=== PATIENT | male | born 1955 | race Caucasian/White ===

== ENCOUNTER 2019-09-16 17:25 | Observation (INO) ==
[2019-09-16] MEDS ORDERED: SODIUM CHLORIDE 0.9% 1000ML 500 ML IV ONE (19:04)
[2019-09-16 19:30] LABS: Basophils # (auto) 0.02 K/uL (0-0.2); Basophils % (auto) 0.3 %; Eosinophils % (auto) 3.2 %; Hematocrit (blood only) 46.9 % (42-52); Immature Granulocytes # (auto) 0.02 K/uL (0.00-0.02); Immature Granulocytes % (auto) 0.3 %; Lymphocytes # (auto) 1.48 K/uL (1.2-3.4); Lymphocytes % (auto) 23.5 %; Mean Corpuscular Hemoglobin 31.1 pg (25-34); Mean Corpuscular Hgb Conc 34.1 g/dL (32-36); Mean Corpuscular Volume 91.2 fL (80-100); Mean Platelet Volume 10.5 fL (7.4-10.4); Monocytes # (auto) 0.62 K/uL (0.11-0.59); Monocytes % (auto) 9.8 %; Neutrophils # (auto) 3.97 K/uL (1.4-6.5); Neutrophils % (auto) 62.9 %; Platelet Count 198 K/uL (130-400); RDW Coefficient of Variation 12.8 % (11.5-14.5); RDW Standard Deviation 42.7 fL (36.4-46.3); Red Blood Count 5.14 M/uL (4.7-6.1); White Blood Count 6.31 K/uL (4.8-10.8)
[2019-09-16 19:41] LABS: Partial Thromboplastin Time 25.8 Seconds (21.0-31.0); Prothrombin Time 10.3 Seconds (9.0-12.0)
[2019-09-16 19:45] LABS: Albumin Level 4.2 gm/dl (3.4-5.0); BUN Creatinine Ratio 20.2 (10-20); Calcium 9.2 mg/dl (8.5-10.1); Creatinine Clr Calc Pharmacy 78.8 ml/min; Est GFR (African American) 71.5; Est GFR (Non-African American) 61.7; Magnesium 2.3 mg/dl (1.8-2.4)
[2019-09-16 19:59] LABS: Albumin Globulin Ratio 1.3 (0.9-2); Bilirubin,Total 0.4 mg/dl (0.2-1); Globulin 3.2 gm/dl (2.5-4.0); Thyroid Stimulating Hormone 1.34 uIu/ml (0.300-4.500); Total Protein 7.4 gm/dl (6.4-8.2); Troponin I 0.288 ng/ml (0-0.045)
--- NOTE | 2019-09-16 20:04 | XRay Report ---
SINGLE VIEW CHEST CLINICAL HISTORY: Atypical chest pain. FINDINGS: 2 AP, portable, upright chest radiographs are compared to study dated 02/08/2009. The examin ation is degraded by portable technique and patient rotation. The heart is top normal for projection. The mediastinal contour is within normal limits. The lungs and pleural spaces are clear. No pneumoth orax is seen. The bony thorax is grossly intact. IMPRESSION: No active disease in the chest. Electronically signed by: Ricardo Stacy M.D. 09/16/2019 8:03 PM
[2019-09-16] MEDS ORDERED: METOPROLOL TARTRATE 25 MG TAB PO SCH (20:20)
[2019-09-16] MEDS ORDERED: METOPROLOL TARTRATE 25 MG TAB PO STA (20:21)
--- NOTE | 2019-09-16 21:40 | History & Physical Report ---
Date of Service September 16, 2019 Assessment & Plan (1) Palpitations: With troponin elevation Possibly from uncontrolled blood pressure Missed beta-benja dose Unknown BP control at home Anxiety contributory rule out RUBÉN CAD status post stent history of DVT sp Coumadin, history factor V Leiden mutation as per records hyperlipidemia, statin intolerance OBS PCU Facilitate home beta-benja, may need dose titration Anxiolytic as needed Follow troponin Cardiology consult in a.m. RE palpitations, troponin elevation (Patient known to Dr. Cowart.) N.p.o. after midnight in anticipation of any cardiac procedure. Outpatient sleep study DVT prophylaxis. Lovenox subcu Full code History of Present Illness Chief Complaint: Palpitations Primary Care Provider: Rene Bautista MD History obtained from patient, family, and records. Medical history significant for CAD status post stent, history DVT status post Coumadin, factor V Leiden mutation as per records, hypertension, hyperlipidemia, statin intolerance. 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 Atenolol replaced by Lopressor after recent confinement February [address] elevation ND status post stent placement. The last 3 weeks patient felt heart skipping a beat sensation a little different from usual heartbeat as per patient. Patient did not take morning Lopressor today thinking medication might be causing abnormality. No chest pain, no S OB. Usual stress at home. Patient does not check his blood pressure at home. Patient does not feel rested in the morning. Remembers an episode where he woke up gasping for air. Denies dietary indiscretion. Patient brought to the ER by family due to heartbeat concerns. 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 Allergies Allergy/AdvReac Type Severity Reaction Status Date / Time naproxen [From Naprosyn] Allergy Intermediate Shortness Unverified 09/16/19 20: 07 of Breath Home Medications Home Medications Medication Instructions Recorded Confirmed Type aspirin 81 mg PO HS 09/16/19 09/16/19 History hydrochlorothiazide 12.5 mg PO QAM 09/16/19 09/16/19 History metoprolol succinate 25 mg PO BID #60 tab 09/17/19 Rx Past Med/Surg History Social History Preferred Language: Occitan Communication Ability: Effective Beliefs That Will Affect Care: None Current Living Situation: Spouse Feels Safe at Home: Yes Smoking Status: Never smoker Hx Alcohol Use: No Hx Substance Use: No Review of Systems Review of Systems: As per HPI, all 10 systems reviewed, all other ROS negative Physical Exam Physical Exam: GENERAL: Comfortable, slightly anxious, no respiratory distress SKIN: Normal color, warm HEENT: [place] palpebral conjunctivae, no ptosis, moist buccal mucosa NECK : Supple, no tenderness CHEST : CTA, no tenderness HEART : Ectopic beats, no obvious murmurs ABDOMEN: Some distention, nontender EXTREMITIES : No LE swelling/tenderness, no other conspicuous deformities noted NEUROLOGIC : Coherent, no facial asymmetry, no other gross focality Results & Data Vital Signs (Past 12 Hours) Vital Signs Temp Pulse Resp BP Pulse Ox 09/16/19 21:00 84 18 159/99 H 99 09/16/19 20:30 91 H 17 153/91 H 99 09/16/19 20:15 82 15 153/100 H 98 09/16/19 20:00 91 H 15 160/93 H 99 09/16/19 19:30 80 12 139/86 99 09/16/19 19:01 76 19 162/95 H 99 09/16/19 17:32 36.7 C 57 L 18 164/96 H 98 Laboratory Results Laboratory Results WBC 6.31 K/uL (4.8-10.8) 09/16/19 19:15 RBC 5.14 M/uL (4.7-6.1) 09/16/19 19:15 Hgb 16.0 g/dL (14.0-18.0) 09/16/19 19:15 Hct 46.9 % (42-52) 09/16/19 19:15 MCV 91.2 fL (80-100) 09/16/19 19:15 MCH 31.1 pg (25-34) 09/16/19 19:15 MCHC 34.1 g/dL (32-36) 09/16/19 19:15 RDW Std Deviation 42.7 fL (36.4-46.3) 09/16/19 19:15 RDW Coeff of Caro 12.8 % (11.5-14.5) 09/16/19 19:15 Plt Count 198 K/uL (130-400) 09/16/19 19:15 MPV 10.5 fL (7.4-10.4) H 09/16/19 19:15 Immature Gran % (Auto) 0.3 % 09/16/19 19:15 Neut % (Auto) 62.9 % 09/16/19 19:15 Lymph % (Auto) 23.5 % 09/16/19 19:15 [place] % (Auto) 9.8 % 09/16/19 19:15 Eos % (Auto) 3.2 % 09/16/19 19:15 Baso % (Auto) 0.3 % 09/16/19 19:15 Immature Gran # (Auto) 0.02 K/uL (0.00-0.02) 09/16/19 19:15 Neut # (Auto) 3.97 K/uL (1.4-6.5) 09/16/19 19:15 Lymph # (Auto) 1.48 K/uL (1.2-3.4) 09/16/19 19:15 [place] # (Auto) 0.62 K/uL (0.11-0.59) H 09/16/19 19:15 Eos # (Auto) 0.20 K/uL (0-0.5) 09/16/19 19:15 Baso # (Auto) 0.02 K/uL (0-0.2) 09/16/19 19:15 PT 10.3 Seconds (9.0-12.0) 09/16/19 19:15 INR 1.0 (0.9-1.1) 09/16/19 19:15 APTT 25.8 Seconds (21.0-31.0) 09/16/19 19:15 PTT Ratio 1.0 09/16/19 19:15 Sodium 138 mmol/L (136-145) 09/16/19 19:15 Potassium 4.0 mmol/L (3.5-5.1) 09/16/19 19:15 Chloride 106 mmol/L (98-107) 09/16/19 19:15 Carbon Dioxide 27 mmol/L (21-32) 09/16/19 19:15 Anion Gap 5.0 (3-11) 09/16/19 19:15 BUN 25 mg/dl (7-18) H 09/16/19 19:15 Creatinine 1.23 mg/dl (0.6-1.4) 09/16/19 19:15 Est Cr Clr Drug Dosing 78.8 ml/min 09/16/19 19:15 Est GFR ( Amer) 71.5 09/16/19 19:15 Est GFR (Non-Af Amer) 61.7 09/16/19 19:15 BUN/Creatinine Ratio 20.2 (10-20) H 09/16/19 19:15 Glucose 95 mg/dl (70-99) 09/16/19 19:15 Calcium 9.2 mg/dl (8.5-10.1) 09/16/19 19:15 Magnesium 2.3 mg/dl (1.8-2.4) 09/16/19 19:15 Total Bilirubin 0.4 mg/dl (0.2-1) 09/16/19 19:15 AST 17 U/L (15-37) 09/16/19 19:15 ALT 30 U/L (12-78) 09/16/19 19:15 Alkaline Phosphatase 60 U/L (45-117) 09/16/19 19:15 Troponin I 0.288 ng/ml (0-0.045) H* 09/16/19 19:15 Total Protein 7.4 gm/dl (6.4-8.2) 09/16/19 19:15 Albumin 4.2 gm/dl (3.4-5.0) 09/16/19 19:15 Globulin 3.2 gm/dl (2.5-4.0) 09/16/19 19:15 Albumin/Globulin Ratio 1.3 (0.9-2) 09/16/19 19:15 TSH 1.340 uIu/ml (0.300-4.500) 09/16/19 19:15 Diagnostic Findings Chest x-ray : No active disease EKG as per my interpretation : Rate 95, RAD, ST depression in anterolateral leads, PVCs
[2019-09-16] MEDS ORDERED: MoRPHine SULFATE 4 MG/ML 1 ML CARP\\VIAL IV PRN (22:51)
[2019-09-16] MEDS ORDERED: ACETAMINOPHEN 325 MG TAB PO PRN (22:51)
[2019-09-16] MEDS ORDERED: NITROGLYCERIN SL 0.4 MG/TAB TAB SL PRN (22:51)
[2019-09-16] MEDS ORDERED: PROMETHAZINE HCL 12.5 MG in SODIUM CHLORIDE 0.9% 50 ML IV PRN (22:51)
[2019-09-16] MEDS ORDERED: TRAMADOL HCL 50 MG TABLET PO PRN (22:51)
[2019-09-16] MEDS ORDERED: LORazepam 0.25 MG/0.5 ML VIAL IV PRN (22:51)
[2019-09-17] MEDS ORDERED: D5W AND LACTATED RINGERS 1,000 ML IV SCH
--- NOTE | 2019-09-17 00:22 | Emergency Department Note ---
Entered by Jailyn Hubbard acting as a scribe for History of Present Illness General Chief complaint: Arrhythmia/Palpitations Stated complaint: HEART STOPPING AND STARTING Time Seen by Provider: 09/16/19 18:55 Source: patient Mode of arrival: ambulatory Limitations: no limitations History of Present Illness Onset (ago): day(s) 1 Location: chest Radiation: non-radiation Pain Consistency: + constant Relieved By: + none Exacerbated By: + none Associated symptoms: no chest pain and no shortness of breath Treatments prior to arrival: other (Metoprolol) The patient is a 64 year old male who presents to the ED with complaints of an arrhythmia for the past 3 weeks. He states he has a history of an extra beat since he was in his s. He had a stress-echo in January 2019, and reports "everything was fine". 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 He denies any chest pain or difficulty breathing. He denies any recent cold or illness. He did take his Metoprolol this morning around 0700. He does have a history of a previous AL. Home Medications Home Medications Medication Instructions Recorded Confirmed Type aspirin 81 mg PO HS 09/16/19 09/16/19 History hydrochlorothiazide 12.5 mg PO QAM 09/16/19 09/16/19 History metoprolol succinate 25 mg PO BID #60 tab 09/17/19 Rx Allergies Allergy/AdvReac Type Severity Reaction Status Date / Time naproxen [From Naprosyn] Allergy Intermediate Shortness Unverified 09/16/19 20 :07 of Breath Past Med/Surg History Social History Preferred Language: Kiswahili Communication Ability: Effective Beliefs That Will Affect Care: None Current Living Situation: Spouse Feels Safe at Home: Yes Smoking Status: Never smoker Hx Alcohol Use: No Hx Substance Use: No Review of Systems See HPI for pertinent positives & negatives. and A total of 10 systems reviewed and were otherwise negative Physical Exam Vital Signs Vital Signs - 24 hr 09/16/19 17:32 09/16/19 19:01 09/16/19 19:02 Temperature 36.7 C Temperature Source Oral Pulse Rate 57 L 76 Pulse Rate from SpO2 Sensor 45 L Respiratory Rate 18 19 Blood Pressure 164/96 H 162/95 H Blood Pressure Mean 118 108 Pulse Oximetry 98 99 Oxygen Delivery Method Room Air Room Air Sepsis Recent Fever Within 48 Hours No Sepsis Action Taken by Nursing No Action Required 09/16/19 19:30 09/16/19 20:00 09/16/19 20:15 Temperature Temperature Source Pulse Rate 80 91 H 82 Pulse Rate from SpO2 Sensor 40 L 91 H 87 Respiratory Rate 12 15 15 Blood Pressure 139/86 160/93 H 153/100 H Blood Pressure Mean 94 98 109 Pulse Oximetry 99 99 98 Oxygen Delivery Method Room Air Room Air Room Air Sepsis Recent Fever Within 48 Hours Sepsis Action Taken by Nursing 09/16/19 20:30 09/16/19 21:00 09/16/19 21:25 Temperature Temperature Source Pulse Rate 91 H 84 82 Pulse Rate from SpO2 Sensor 58 L 59 L 71 Respiratory Rate 17 18 17 Blood Pressure 153/91 H 159/99 H 160/99 H Blood Pressure Mean 97 104 104 Pulse Oximetry 99 99 93 Oxygen Delivery Method Room Air Room Air Room Air Sepsis Recent Fever Within 48 Hours Sepsis Action Taken by Nursing 09/16/19 21:30 Temperature Temperature Source Pulse Rate 87 Pulse Rate from SpO2 Sensor 68 Respiratory Rate 14 Blood Pressure 147/103 H Blood Pressure Mean 112 Pulse Oximetry 94 Oxygen Delivery Method Room Air Sepsis Recent Fever Within 48 Hours Sepsis Action Taken by Nursing GENERAL: Patient is awake, alert, and in no acute distress.Patient is resting comfortably and showing no signs of anxiety EYES: The conjunctivae are clear. The pupils are round and reactive. EARS, NOSE, MOUTH AND THROAT: The nose is without any evidence of any deformity. Mucous membranes are moist.Tongue is midline NECK: The neck is nontender and supple. RESPIRATORY: Normal respiratory effort is noted. There is no evidence of wheezing rhonchi or rales to auscultation. CARDIOVASCULAR: Ectopy noted to auscultation, no definite murmur GASTROINTESTINAL: The abdomen is soft. Bowel sounds are present in all quadrants. Abdomen is nontender. MUSCULOSKELETAL/EXTREMITIES: There is no evidence of gross deformity. Full range of motion is noted in the hips and shoulders. SKIN: There is no obvious evidence of any rash. There are no petechiae, pallor or cyanosis noted. NEUROLOGIC: Patient is awake alert and oriented x3. Course Course 1857: The patient was evaluated in room C6 and a complete history and physical were performed. 2013: I discussed the patients case with Dr. Anne, [facility] Hospitalist. The patient will be further evaluated. 2019: I reevaluated the patient. I discussed my recommendation he be further evaluated by the hospital medicine team and he is agreeable with the plan. Administered Medications Discontinued Medications Enoxaparin Sodium (Lovenox) 40 mg SQ QAM AMADO Stop: 10/17/19 08:59 Last Admin: 09/17/19 10:24 Dose: Not Given Documented by: [id number] Sodium Chloride (Nss 1000ml) 500 mls @ 999 mls/hr IV .Q31M ONE Stop: 09/16/19 19:34 Last Infusion: 09/16/19 20:08 Dose: 0 mls/hr Documented by: [id number] Admin: 09/16/19 19:12 Dose: 999 mls/hr Documented by: [id number] Dextrose/Lactated Ringer's (D5w And Lactated Ringers) 1,000 mls @ 40 mls/hr IV .Q24H AMADO Stop: 10/17/19 00:00 Last Admin: 09/17/19 00:33 Dose: 40 mls/hr Documented by: [id number] Metoprolol Tartrate (Lopressor) 25 mg PO BID [facility] Stop: 10/16/19 20:19 Last Admin: 09/16/19 20:41 Dose: Not Given Documented by: [id number] Metoprolol Tartrate (Lopressor) 25 mg PO NOW [facility] [place] Stop: 09/16/19 20:22 Last Admin: 09/16/19 20:41 Dose: 25 mg Documented by: [id number] Metoprolol Tartrate (Lopressor) 25 mg PO BID AMADO Stop: 10/17/19 08:59 Last Admin: 09/17/19 10:24 Dose: 25 mg Documented by: [id number] Medical Decision Making Differential Diagnosis Differential diagnosis includes etiologies such as premature contractions, electrolyte abnormality, cardiac dysrhythmia, thyroid dysfunction, pulmonary embolism, infection, gastrointestinal, as well as others were entertained. Medical Records Attestation: I reviewed the patient's medical records. Home Medications Current Medication List: was personally reviewed by me Laboratory Data Attestation: I reviewed the patient's lab results. Result diagrams: 09/17/19 06:38 09/17/19 06:38 Lab Results 09/16/19 09/16/19 09/16/19 Range/Units 19:15 19:15 19:15 WBC 6.31 (4.8-10.8) K/uL RBC 5.14 (4.7-6.1) M/uL Hgb 16.0 (14.0-18.0) g/dL Hct 46.9 (42-52) % MCV 91.2 (80-100) fL MCH 31.1 (25-34) pg MCHC 34.1 (32-36) g/dL RDW Std Deviation 42.7 (36.4-46.3) fL RDW Coeff of Caro 12.8 (11.5-14.5) % Plt Count 198 (130-400) K/uL MPV 10.5 H (7.4-10.4) fL Immature Gran % (Auto) 0.3 % Neut % (Auto) 62.9 % Lymph % (Auto) 23.5 % [place] % (Auto) 9.8 % Eos % (Auto) 3.2 % Baso % (Auto) 0.3 % Immature Gran # (Auto) 0.02 (0.00-0.02) K/uL Neut # (Auto) 3.97 (1.4-6.5) K/uL Lymph # (Auto) 1.48 (1.2-3.4) K/uL [place] # (Auto) 0.62 H (0.11-0.59) K/uL Eos # (Auto) 0.20 (0-0.5) K/uL Baso # (Auto) 0.02 (0-0.2) K/uL PT 10.3 (9.0-12.0) Seconds INR 1.0 (0.9-1.1) APTT 25.8 (21.0-31.0) Seconds PTT Ratio 1.0 Sodium 138 (136-145) mmol/L Potassium 4.0 (3.5-5.1) mmol/L Chloride 106 (98-107) mmol/L Carbon Dioxide 27 (21-32) mmol/L Anion Gap 5.0 (3-11) BUN 25 H (7-18) mg/dl Creatinine 1.23 (0.6-1.4) mg/dl Est Cr Clr Drug Dosing 78.8 ml/min Est GFR ( Amer) 71.5 Est GFR (Non-Af Amer) 61.7 BUN/Creatinine Ratio 20.2 H (10-20) Glucose 95 (70-99) mg/dl Calcium 9.2 (8.5-10.1) mg/dl Magnesium 2.3 (1.8-2.4) mg/dl Total Bilirubin 0.4 (0.2-1) mg/dl AST 17 (15-37) U/L ALT 30 (12-78) U/L Alkaline Phosphatase 60 (45-117) U/L Troponin I 0.288 H* (0-0.045) ng/ml Total Protein 7.4 (6.4-8.2) gm/dl Albumin 4.2 (3.4-5.0) gm/dl Globulin 3.2 (2.5-4.0) gm/dl Albumin/Globulin Ratio 1.3 (0.9-2) TSH 1.340 (0.300-4.500) uIu/ml Imaging Data Radiologist's Impression: Radiology results as stated below per my review and the radiologist's interpretation: SINGLE VIEW CHEST CLINICAL HISTORY: Atypical chest pain. FINDINGS: 2 AP, portable, upright chest radiographs are compared to study dated 02/08/2009. The examination is degraded by portable technique and patient rotation. The heart is top normal for projection. The mediastinal contour is within normal limits. The lungs and pleural spaces are clear. No pneumothorax is seen. The bony thorax is grossly intact. IMPRESSION: No active disease in the chest. Electronically signed by: Ricardo Stacy M.D. 09/16/2019 8:03 PM ECG Data Attestation: I personally reviewed and interpreted this ECG as follows: Indication: + palpitations Rate (beats per minute): 96 Rhythm: + sinus rhythm ECG ST segments: + ST depression (Lateral) ECG Findings: + PVCs (frequent PVC) and + Other (Inferior T-wave abnormalities) Comparison ECG Date: from (02/08/2009) Change: the following changes noted (Changes are new compared to previous) Blood Pressure Blood Pressure Findings: Elevated blood pressure Blood Pressure Disposition: further management by hospitalist JENNIFER Narrative The patient is a 64-year-old male who presented to the emergency department for evaluation of palpitations. The patient was found to be having runs of ectopy including bigeminy but mostly single PVCs. The patient did not have any specific chest pain or dyspnea on exertion but he was found to have a mild elevation in his troponin. I discussed the patient's laboratory and radiographic studies with him. He was treated with IV fluids in the emergency department. The patient does have a history of myocardial infarction in the past. For this reason I discussed his case with the on-call [facility] hospitalist. They have agreed to evaluate the patient in the emergency department for further management disposition. The patient remained pain-free and asymptomatic while he was in the emergency department except for having symptomatic PVCs. Impression & Plan Abnormal EKG, Palpitations, PVC (premature ventricular contraction), Elevated troponin Discharge Plan Visit Data *Final* Discharge Date/Time: 09/16/19 22:29 Chief Complaint: Arrhythmia/Palpitations Stated Complaint: HEART STOPPING AND STARTING ED Provider: Hayden Pate Discharge Problem: Abnormal EKG, Palpitations, PVC (premature ventricular contraction), Elevated troponin Patient Disposition: Admitted As Inpatient Discharge Instructions Interventions: ED Discharge Assessment Last Done: 09/16/19 22:29 The scribe's documentation has been prepared under my direction and personally reviewed by me in its entirety. I confirm that the note above accurately reflects all work, treatment, procedures, and medical decision making performed by me.
[2019-09-17 07:39] LABS: Basophils # (auto) 0.01 K/uL (0-0.2); Basophils % (auto) 0.2 %; Eosinophils # (auto) 0.16 K/uL (0-0.5); Eosinophils % (auto) 2.6 %; Hematocrit (blood only) 47.1 % (42-52); Immature Granulocytes # (auto) 0.01 K/uL (0.00-0.02); Immature Granulocytes % (auto) 0.2 %; Lymphocytes # (auto) 1.52 K/uL (1.2-3.4); Lymphocytes % (auto) 24.8 %; Mean Corpuscular Hemoglobin 31.1 pg (25-34); Mean Corpuscular Volume 91.6 fL (80-100); Monocytes # (auto) 0.54 K/uL (0.11-0.59); Monocytes % (auto) 8.8 %; Neutrophils # (auto) 3.88 K/uL (1.4-6.5); Neutrophils % (auto) 63.4 %; Platelet Count 190 K/uL (130-400); RDW Coefficient of Variation 12.7 % (11.5-14.5); RDW Standard Deviation 42.8 fL (36.4-46.3); Red Blood Count 5.14 M/uL (4.7-6.1); White Blood Count 6.12 K/uL (4.8-10.8)
[2019-09-17 07:46] LABS: Partial Thromboplastin Time 26.3 Seconds (21.0-31.0)
[2019-09-17 08:24] LABS: BUN Creatinine Ratio 17.6 (10-20); Creatinine Clr Calc Pharmacy 84.1 ml/min; Est GFR (African American) 82.7; Est GFR (Non-African American) 71.4; Potassium 3.9 mmol/L (3.5-5.1)
[2019-09-17] MEDS ORDERED: METOPROLOL TARTRATE 25 MG TAB PO SCH (09:00)
[2019-09-17] MEDS ORDERED: ENOXAPARIN INJ 40 MG/0.4 ML SYR SQ SCH (09:00)
--- NOTE | 2019-09-17 11:54 | Cardiology Consultation ---
Date of Consultation September 17, 2019 Assessment & Plan (1) PVC (premature ventricular contraction): He has frequent PVCs and this is the likely source of his palpitations. As with most patients his symptoms seem to disappear with activity. Whether this is due to him being otherwise distracted or they truly resolved with exercise is unclear. Review of his recent stress testing did not report on PVCs. The morphology of his PVCs suggests a left inferior, mid ventricle source. Presumably this is the same arrhythmia he has been suffering from from over 30 years. I do not have another EKG with PVCs in his record of which to compare. He has preserved LV systolic function. He underwent stress echocardiography earlier this year which did not demonstrate any evidence of inducible ischemia. He is able to perform a good workload without symptoms of angina, chest pain or indigestion. Interestingly, he feels that after he takes his metoprolol in the morning he will not have palpitations for up to 5 hours. However between doses he will have palpitations again. Did discuss the option for medical therapy. Perhaps we could find a longer-acting agent. We did briefly discuss the option for antiarrhythmic medications primarily for symptom relief. However, given the narrow therapeutic index and potential for additional toxicity we have elected to continue with beta-benja possibly a different formulation for now. I would recommend metoprolol succinate 25 milligrams twice daily as a substitute for his tartrate. (2) Coronary artery disease: It prior percutaneous intervention to the right coronary in the setting of an acute UT. He also had intervention to the circumflex at that time. 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 He has not had evidence of ischemia on his recent study. He has no symptoms of ischemia. He should continue on his aspirin and beta-benja. He did have myalgias with statin therapy previously (3) Elevated troponin: I do not have a great explanation for why his markers are mildly elevated. He certainly does not describe symptoms consistent with an acute coronary syndrome. He is not having symptoms of angina. He has no recurrence of his index symptoms associated with his myocardial infarction in 2008. His EKG is not suggestive of ischemia. Certainly PVCs could be related to ischemic heart disease, but this appears to be a chronic problem for him dating back many years. Do not think he requires any additional testing for his elevated markers. History of Present Illness Reason for Consultation: Palpitations Requesting Physician: Pavan Attending Physician: Nickolas Zamora MD History of Present Illness The patient is a 64-year-old gentleman with a history of coronary disease having previously suffered a posterior myocardial infarction in 2008. Patient has done well since that time. He has suffered from occasional palpitations. This is a lifelong problem dating back over 30 years. Patient states that intermittently he will have several days worth of palpitations that he describes as a skipped beat. Recently he has been having a similar episode but this 1 seems to be lasting longer. He thinks the palpitations are more frequent as well. He describes this as his heart stopping. He does not appear to be associated with other symptoms such as dizziness, lightheadedness or syncope. He has not had any symptoms of chest discomfort or breathing difficulty. He is an active individual who notices the palpitations primarily at rest. He states that with activity as palpitations go away. He is able to shovel cold, work in and out of [place] is an carry heavy items without any symptoms. He has no symptoms of chest pain with exertion or at rest. His symptoms at the time of his myocardial infarction in 2008 were indigestion. He does state that he gets heartburn if he does not take his ranitidine. However, he has been compliant with that medi cation and has not had any heartburn recently. Allergies Allergy/AdvReac Type Severity Reaction Status Date / Time naproxen [From Naprosyn] Allergy Intermediate Shortness Unverified 09/16/19 20:07 of Breath Home Medications Home Medications Medication Instructions Recorded Confirmed Type aspirin 81 mg PO HS 09/16/19 09/16/19 History hydrochlorothiazide 12.5 mg PO QAM 09/16/19 09/16/19 History metoprolol tartrate 25 mg PO BID 09/16/19 09/16/19 History Patient History Social History Preferred Language: Bermudian Communication Ability: Effective Beliefs That Will Affect Care: None Current Living Situation: Spouse Other Information That Helps Us Care for You: No Feels Safe at Home: Yes Safety Concerns: Feels Safe At This Time Smoking Status: Never smoker Hx Alcohol Use: No Hx Substance Use: No Review of Systems Review of Systems: All systems reviewed & are unremarkable except as noted in HPI & below No recent constitutional symptoms such as fevers or chills. Physical Exam Physical Exam: The patient is alert and oriented. Mood and affect appeared normal. He answered all questions appropriately. HEENT: Pupils are equal and reactive to light and accommodation. Extraocular movements are intact. The sclerae are anicteric. Neuro: Cranial nerves intact Neck: Patient's neck is supple. He has palpable carotid pulses bilaterally without bruits on auscultation. There is no evidence of jugular venous distention. The thyroid is not enlarged. Lungs: Clear to auscultation bilaterally. He has good air movement without use of accessory muscles. No rales wheezes or rhonchi. Cardiac: Heart demonstrates a regular rate and rhythm with occasional ectopy. Normal S1 and S2. No murmurs on examination. Pulses: The patient has palpable radial pulses bilaterally that are equal in intensity Extremities: There was no evidence of hypoperfusion. There is no cyanosis or clubbing. There is no edema. Skin: I did not appreciate any rashes on examination today. Results & Data Vital Signs (Past 12 Hours) Vital Signs Temp Pulse Pulse Resp BP Pulse Ox 09/17/19 11:32 36.7 C 66 19 132/79 100 09/17/19 08:00 75 09/17/19 07:17 37.0 C 89 20 134/73 96 09/17/19 03:53 36.7 C 87 18 142/76 H 98 09/17/19 00:32 36.7 C 83 18 159/79 H 96 Laboratory Results Abnormal Lab Results 09/16/19 09/16/19 09/16/19 19:15 19:15 19:15 WBC 6.31 RBC 5.14 Hgb 16.0 Hct 46.9 MCV 91.2 MCH 31.1 MCHC 34.1 RDW Std Deviation 42.7 RDW Coeff of Caro 12.8 Plt Count 198 MPV 10.5 H Immature Gran % (Auto) 0.3 Neut % (Auto) 62.9 Lymph % (Auto) 23.5 Heard % (Auto) 9.8 Eos % (Auto) 3.2 Baso % (Auto) 0.3 Immature Gran # (Auto) 0.02 Neut # (Auto) 3.97 Lymph # (Auto) 1.48 Heard # (Auto) 0.62 H Eos # (Auto) 0.20 Baso # (Auto) 0.02 PT 10.3 INR 1.0 APTT 25.8 PTT Ratio 1.0 Sodium 138 Potassium 4.0 Chloride 106 Carbon Dioxide 27 Anion Gap 5.0 BUN 25 H Creatinine 1.23 Est Cr Clr Drug Dosing 78.8 Est GFR ( Amer) 71.5 Est GFR (Non-Af Amer) 61.7 BUN/Creatinine Ratio 20.2 H Glucose 95 Calcium 9.2 Magnesium 2.3 Total Bilirubin 0.4 AST 17 ALT 30 Alkaline Phosphatase 60 Troponin I 0.288 H* Total Protein 7.4 Albumin 4.2 Globulin 3.2 Albumin/Globulin Ratio 1.3 Triglycerides Cholesterol LDL Cholesterol, Calc VLDL Cholesterol, Calc HDL Cholesterol Cholesterol/HDL Ratio TSH 1.340 Hepatitis C Ab Screen 09/16/19 09/17/19 09/17/19 22:57 06:38 06:38 WBC 6.12 RBC 5.14 Hgb 16.0 Hct 47.1 MCV 91.6 MCH 31.1 MCHC 34.0 RDW Std Deviation 42.8 RDW Coeff of Caro 12.7 Plt Count 190 MPV 11.0 H Immature Gran % (Auto) 0.2 Neut % (Auto) 63.4 Lymph % (Auto) 24.8 Heard % (Auto) 8.8 Eos % (Auto) 2.6 Baso % (Auto) 0.2 Immature Gran # (Auto) 0.01 Neut # (Auto) 3.88 Lymph # (Auto) 1.52 Heard # (Auto) 0.54 Eos # (Auto) 0.16 Baso # (Auto) 0.01 PT INR APTT PTT Ratio Sodium Potassium Chloride Carbon Dioxide Anion Gap BUN Creatinine Est Cr Clr Drug Dosing Est GFR ( Amer) Est GFR (Non-Af Amer) BUN/Creatinine Ratio Glucose Calcium Magnesium Total Bilirubin AST ALT Alkaline Phosphatase Troponin I 0.249 H* Total Protein Albumin Globulin Albumin/Globulin Ratio Triglycerides Cholesterol LDL Cholesterol, Calc VLDL Cholesterol, Calc HDL Cholesterol Cholesterol/HDL Ratio TSH Hepatitis C Ab Screen Neg 09/17/19 09/17/19 06:38 06:38 WBC RBC Hgb Hct MCV MCH MCHC RDW Std Deviation RDW Coeff of Caro Plt Count MPV Immature Gran % (Auto) Neut % (Auto) Lymph % (Auto) Heard % (Auto) Eos % (Auto) Baso % (Auto) Immature Gran # (Auto) Neut # (Auto) Lymph # (Auto) Heard # (Auto) Eos # (Auto) Baso # (Auto) PT INR APTT 26.3 PTT Ratio 1.0 Sodium 141 Potassium 3.9 Chloride 109 H Carbon Dioxide 25 Anion Gap 7.0 BUN 19 H Creatinine 1.09 Est Cr Clr Drug Dosing 84.1 Est GFR ( Amer) 82.7 Est GFR (Non-Af Amer) 71.4 BUN/Creatinine Ratio 17.6 Glucose 109 H Calcium 9.0 Magnesium Total Bilirubin AST ALT Alkaline Phosphatase Troponin I Total Protein Albumin Globulin Albumin/Globulin Ratio Triglycerides 105 Cholesterol 221 H LDL Cholesterol, Calc 161 VLDL Cholesterol, Calc 21 HDL Cholesterol 39 Cholesterol/HDL Ratio 6 TSH Hepatitis C Ab Screen Diagnostic Findings Chest x-ray obtained the time admission not reveal any acute cardiopulmonary process Echocardiogram obtained today revealed preserved LV systolic function without regional wall motion abnormalities. No significant valvular heart disease. ECG Additional Comments: EKG demonstrated normal sinus rhythm with frequent PVCs. PG Care Time/CCT Total # of Minutes Spent Total Time Spent with Patient: Total time spent is greater than 50% in coordination of care (as documented) at patient's floor/unit and/or counseling patient:
--- NOTE | 2019-09-17 13:48 | Hospitalist Progress Note ---
Date of Service September 17, 2019 Assessment & Plan (1) PVC (premature ventricular contraction): (2) Elevated troponin: (3) Palpitations: Has been having recurrent palpitation Troponin on admission 0.28, then slightly dropped to 0.24 ECHO done showed no wall motion abnormality EKG showed no acute ischemic changes, but PVC Case discussed with Cardiology recommended to changed metoprolol tartrate to metoprolol succ Pt said that the metoprolol does not last because he usually feels his symptoms 5 hrs after taking metoprolol Symptoms improves after taking metoprolol Ok from cardiology standpoint to discharge home on Metoprolol succinate 25mg BID Follow up with cardiology outpatient CAD status post stent Continue beta benja and aspirin Statin intolerance DVT prophylaxis on Lovenox subcu Code status Full code Disposition Follow up with your primary care provider Subjective Pt was seen and examined Sitting in bed with no distress with at bedside Pt said that he feels fine He said that he has been walking on the hallway with no distress Denies any chest pain, palpitation, dizziness and SOB Physical Exam Physical Exam: General- No acute distress Head- atraumatic Eyes- PERRL, EOMI, ENT- oropharynx clear Neck- supple, no JVD Lungs- clear to auscultation Heart- regular rhythm; no murmur Abdomen- normal bowel sounds, soft, nontender Extremities- no calf tenderness Neuro- alert, oriented x 3; PERRL, EOMI; no facial palsy; no dysarthria Skin- warm & dry Results & Data Vital Signs (Past 12 Hours) Vital Signs Temp Pulse Pulse Resp BP Pulse Ox 09/17/19 11:32 36.7 C 66 19 132/79 100 09/17/19 08:00 75 09/17/19 07:17 37.0 C 89 20 134/73 96 09/17/19 03:53 36.7 C 87 18 142/76 H 98
[2019-09-17] MEDS ORDERED: ASPIRIN 81 MG ECTAB PO SCH (21:00)
--- NOTE | 2019-09-18 08:43 | Discharge Summary ---
Date of Service September 17, 2019 Admission HPI Per Admitting Provider History obtained from patient, family, and records. Medical history significant for CAD status post stent, history DVT status post Coumadin, factor V Leiden mutation as per records, hypertension, hyperlipidemia, statin intolerance. 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 Atenolol replaced by Lopressor after recent confinement February [address] CO status post stent placement. The last 3 weeks patient felt heart skipping a beat sensation a little different from usual heartbeat as per patient. Patient did not take morning Lopressor today thinking medication might be causing abnormality. No chest pain, no S OB. Usual stress at home. Patient does not check his blood pressure at home. Patient does not feel rested in the morning. Remembers an episode where he woke up gasping for air. Denies dietary indiscretion. Patient brought to the ER by family due to heartbeat concerns. 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 Admission Exam Per Admitting Provider GENERAL: Comfortable, slightly anxious, no respiratory distress SKIN: Normal color, warm HEENT: [place] palpebral conjunctivae, no ptosis, moist buccal mucosa NECK : Supple, no tenderness CHEST : CTA, no tenderness HEART : Ectopic beats, no obvious murmurs ABDOMEN: Some distention, nontender EXTREMITIES : No LE swelling/tenderness, no other conspicuous deformities noted NEUROLOGIC : Coherent, no facial asymmetry, no other gross focality Principal Diagnosis (1) PVC (premature ventricular contraction) (2) Elevated troponin (3) Palpitations (4) CAD Discharge Exam General- No acute distress Head- atraumatic Eyes- PERRL, EOMI, ENT- oropharynx clear Neck- supple, no JVD Lungs- clear to auscultation Heart- regular rhythm; no murmur Abdomen- normal bowel sounds, soft, nontender Extremities- no calf tenderness Neuro- alert, oriented x 3; PERRL, EOMI; no facial palsy; no dysarthria Skin- warm & dry Discharge Data Allergies Allergy/AdvReac Type Severity Reaction Status Date / Time naproxen [From Naprosyn] Allergy Intermediate Shortness Unverified 09/16/19 20:07 of Breath Consultations 09/16/19 20:13 ED Decision to Admit Stat 09/16/19 22:51 Consult Cardiology Routine Ordered Studies SINGLE VIEW CHEST CLINICAL HISTORY: Atypical chest pain. FINDINGS: 2 AP, portable, upright chest radiographs are compared to study dated 02/08/2009. The examination is degraded by portable technique and patient rotation. The heart is top normal for projection. The mediastinal contour is within normal limits. The lungs and pleural spaces are clear. No pneumothorax is seen. The bony thorax is grossly intact. IMPRESSION: No active disease in the chest. Electronically signed by: Ricardo Stacy M.D. 09/16/2019 8:03 PM Dictated: 09/16/192001 Transcribed: 09/16/192001 Hospital Course (1) PVC (premature ventricular contraction): (2) Elevated troponin: (3) Palpitations: Has been having recurrent palpitation Troponin on admission 0.28, then slightly dropped to 0.24 ECHO done showed no wall motion abnormality EKG showed no acute ischemic changes, but PVC Case discussed with Cardiology recommended to changed metoprolol tartrate to metoprolol succ Pt said that the metoprolol does not last because he usually feels his symptoms 5 hrs after taking metoprolol Symptoms improves after taking metoprolol Ok from cardiology standpoint to discharge home on Metoprolol succinate 25mg BID Follow up with cardiology outpatient CAD status post stent Continue beta benja and aspirin Statin intolerance DVT prophylaxis on Lovenox subcu Code status Full code Disposition Follow up with your primary care provider Total Time Total Time Spent Total Time Spent (In Minutes): 35 minutes Total Time Includes: Examination of the Patient, Discharge Planning, Medication Reconciliation, Communication With Other Providers and Other Discharge Plan Discharge Items Patient Disposition: Home - Self-Care Reason For Visit: PALPITATIONS,ELEVATED TROPONIN Discharge Diagnosis: (1) PVC (premature ventricular contraction) (2) Elevated troponin (3) Palpitations (4) CAD Activity: Resume your previous activity Non-emergency contact: Primary Care Provider 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 Bautista on 09/21 @ 11:25 AM Follow up with your cardiology Dr. Cowart Continue monitor your blood pressure Follow a low cholesterol diet Pending Studies at Discharge: No Stand-Alone Forms: My [facility], Smoking Cessation Medications and DC Order Prescriptions: New metoprolol succinate 25 mg tablet extended release 24 hr 25 mg PO BID Qty: 60 RF: 0 Continued aspirin 81 mg Tablet,Delayed Release (Dr/Ec) 81 mg PO HS RF: 0 hydrochlorothiazide 12.5 mg Tablet 12.5 mg PO QAM RF: 0 Discontinued metoprolol tartrate 25 mg Tablet 25 mg PO BID RF: 0 Discharge Orders: Discharge Order (Routine); Ordered 09/17/19 Ordered By: Nickolas Szymanski/Other Patient Handouts: Metoprolol Succinate Oral tablet extended- release Admission Data Admit Date/Time: 09/16/19 21:41 Attending Provider: Nickolas Zamora Admit Provider: Simón Anne Primary Care Provider: Rene Bautista Other Providers: Simón Anne ; Masoud Cowart Jr Other Interventions: Discharge Summary Assessment (RN) Last Done: 09/17/19 14:21 DC Date/Time DO NOT enter until pt leaves facility: 09/17/19 14:55
--- NOTE | 2019-09-20 10:46 | XCELERA ---
[id number]
== END 2019-09-17 14:55 | disposition home or self-care (01) ==
LOC: ED 17:25 → 2S 17:25